=== PATIENT | female | born 2000 | race Caucasian/White ===

== ENCOUNTER 2022-12-28 12:09 | Emergency (ER) | payer OTHER ==
[~2022-12-28] VITALS: Ht 165.1 cm; Wt 52.6 kg
== END 2022-12-28 18:21 | disposition home or self-care (01) ==
LOC: ER 12:09
DX: S80.12XA Contusion of left lower leg, initial encounter (principal); V80.010A Animal-rider injured by fall from or being thrown from horse in noncollision accident, initial encounter; Y93.52 Activity, horseback riding; Y92.73 Farm field as the place of occurrence of the external cause

== ENCOUNTER 2023-05-21 18:52 | Emergency (ER) | payer OTHER ==
[~2023-05-21] VITALS: Ht 162.6 cm; Wt 50.8 kg
[2023-05-21] MEDS ORDERED: PEPCID AC20 MG PO (22:37)
[2023-05-21] MEDS ORDERED: DUI500 PO (22:37)
== END 2023-05-21 22:43 | disposition home or self-care (01) ==
LOC: ER 18:52
DX: N39.0 Urinary tract infection, site not specified (principal); R10.9 Unspecified abdominal pain